=== PATIENT | male | born 1955 | race Caucasian/White ===

== ENCOUNTER 2017-03-15 16:39 | Emergency (ER) | payer OTHER ==
[2017-03-15] MEDS ORDERED: TDAP ADULT 0.5 ML INJ (BOOSTRIX) IM ONE (16:46)
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
[2017-03-15 16:48] VITALS: RESP 18; TEMP 98.1
[2017-03-15 18:04] VITALS: BP 154/94; PULSE 82; O2SAT 94
== END 2017-03-15 18:03 | disposition home or self-care (01) ==
LOC: EDUNIT#
DX: S43.102A Unspecified dislocation of left acromioclavicular joint, initial encounter (principal); S80.211A Abrasion, right knee, initial encounter; Z23 Encounter for immunization; V49.49XA Driver injured in collision with other motor vehicles in traffic accident, initial encounter; Y92.410 Unspecified street and highway as the place of occurrence of the external cause